=== PATIENT | male | born 1990 | race Caucasian/White ===

== ENCOUNTER 2016-11-28 02:38 | Emergency (ER) | payer BC ==
[2016-11-28] MEDS ORDERED: HUMIRA40 MG/0.3 SC (02:47)
[2016-11-28] MEDS ORDERED: FLOXIN10 M1 EACH EAR (03:15)
== END 2016-11-28 03:26 ==
LOC: EDMED 02:38
DX: H66.93 Otitis media, unspecified, bilateral (principal); H72.92 Unspecified perforation of tympanic membrane, left ear; F17.210 Nicotine dependence, cigarettes, uncomplicated